=== PATIENT | female | born 1935 | race Caucasian/White ===

== ENCOUNTER → 2018-08-25 | Outpatient (CLI) | payer OTHER ==
[~2018-08-25] MED LIST: COLACE100 MG PO; EFFEXOR PO; GLUCOSAMINE500 M3 PO; GOOD SENSE ASPI81 M3 PO; HYDROCHLOROTHIA25 MG PO; LORAZEPAM0.5 MG PO; NAMENDA XR TITR28 MG PO; NOR10T PO; PRAVACHOL10 MG PO; SOTALOL HCL80 MG PO; TYLENOL ARTHRI650 MG PO; VITAMIN B 12 SL; VITAMIN E PO; [UNRECOGNIZED DRUG - OTHER] PO; [UNRECOGNIZED DRUG - OTHER] PO
== END | disposition home or self-care (01) ==
LOC: NM 07:36
DX: I25.10 Atherosclerotic heart disease of native coronary artery without angina pectoris (principal)
CPT/HCPCS: A9500; J2785